=== PATIENT | female | born 2005 | race Caucasian/White ===

== ENCOUNTER 2023-06-26 12:36 | Emergency (ER) | payer OTHER ==
[2023-06-26 13:43] LABS: #Basophils 0.1 10x3/uL (0.0-0.2); #Eosinphils 0.1 10x3/uL (0.0-0.5); #Monocytes 0.7 10x3/uL (0.0-1.1); #Neutrophils 7.4 10x3/uL (1.5-8.4); %Basophils 0.5 % (0.0-2.0); %Eosinophils 1.2 % (0.0-6.0); %Lymphocytes 16.6 % (18.0-47.0); %Monocytes 7.4 % (0.0-10.0); Hematocrit 38.6 % (34.9-44.5); Mean Corpuscular HGB CONC 33.7 g/dL (32.0-36.0); Mean Corpuscular Hemoglobin 28.5 pg (27.0-33.0); Mean Corpuscular Volume 84.6 fl (81.6-98.3); Mean Platelet Volume 10.2 fl (7.4-10.4); Platelet Count 258 10x3/uL (150-450); Red Blood Cell (RBC) Count 4.56 10x6/uL (3.90-5.03)
[2023-06-26 13:50] LABS: BHCG - Serum Negative (NEGATIVE); Pregs Control Background? CLEAR/WHITE (CLR/WHITE); Pregs Control Bar Appear? YES (CONTROL BAR)
[2023-06-26 13:58] LABS: ALT (SGPT) 10 U/L (8-55); AST (SGOT) 18 U/L (5-30); Albumin 4.1 g/dL (3.5-5.0); Alkaline Phosphatase 68 U/L (40-100); Anion Gap 15 mmol/L (10-20); BUN (Urea Nitrogen) 14 mg/dL (8.4-21.0); Bilirubin, Total 0.7 mg/dL (0.2-1.2); Calc. Creatinine Clearance 0 mL/min (70-130); Calcium 9.2 mg/dL (7.8-10.44); Carbon Dioxide 22 mmol/L (22-29); Chloride 105 mmol/L (98-107); Estimated GFR 106; Glucose 272 mg/dL (70-105); Lipase 6 U/L (8-78); Magnesium 1.8 mg/dL (1.7-2.2); Potassium 5.1 mmol/L (3.5-5.1); Protein, Total 7.1 g/dL (6.0-8.3); Sodium 137 mmol/L (136-145)
[2023-06-26] MEDS ORDERED: Ondansetron PF 4 MG/2 ML Vial ONE (14:10)
[2023-06-26] MEDS ORDERED: Dicyclomine 20 MG TAB ONE (14:11)
[2023-06-26] MEDS ORDERED: Dicyclomine 20 MG/2 ML VIAL ONE (14:17)
[2023-06-26 14:21] LABS: Bilirubin Neg (Negative); Blood, Urine Negative (Negative); Clarity Clear (Clear); Glucose, Urine (Dipstick) >=1000 mg/dL (Negative); Ketone, Urine 150 mg/dL (Negative); Leukocyte Negative (Negative); Nitrite Negative (Negative); Protein, Urine (Dipstick) Negative (Neg-Trace); Urobilinogen Normal mg/dL (Less than 2)
[2023-06-26 14:33] LABS: Influenza A by NAA Not Detected (NotDetected); Influenza B by NAA Not Detected (NotDetected); SARS-CoV-2 NAA Rapid Test Not Detected (NotDetected)
[2023-06-26 14:33] LABS: Bacteria/HPF Rare-Few HPF (None Seen); CAUTI Indications for Culture Pelvic or flank pain; RBC/HPF None Seen HPF (0-3); WBC/HPF 0-3 HPF (0-3)
[2023-06-26 14:34] LABS: Urine Culture Reflex No No
== END 2023-06-26 15:40 | disposition home or self-care (01) ==
LOC: CSHERS 12:36
DX: R55 Syncope and collapse (principal); E10.65 Type 1 diabetes mellitus with hyperglycemia
CPT/HCPCS: 36415; 80053; 81001; 83690; 83735; 84703; 85025; 93005; 94760; 96361; 96372; 96374; J2405